=== PATIENT | male | born 1985 | race African-American/Black ===

== ENCOUNTER 2021-03-15 13:01 | Emergency (ER) | payer MEDICAID, SELFPAY ==
--- NOTE | ~2021-03-15 | XR_ITS ---
EXAMINATION: XR RIBS, LEFT CLINICAL INFORMATION: Rib pain status post football injury COMPARISON: None TECHNIQUE: 3 views of the left ribs were obtained along with single view chest.. FINDINGS: Lungs are clear. No consolidation, pneumothorax, or pleural effusion. The cardiomediastinal silhouette and pulmonary vasculature are normal. Osseous structures are unremarkable. Ribs are intact. No fractures are identified. XR/XR ribs LT min 3V w CXR1V IMPRESSION: Unremarkable examination.
[2021-03-15 13:29] VITALS: BP 116/59; PULSE 70; RESP 16; TEMP 36.6; O2SAT 99; BMI 29.1
--- NOTE | 2021-03-15 14:14 | ED.GENADULT ---
HPI - General Adult General Chief complaint: General Medical Stated complaint: DIFF BREATHING INJ FOOTBALL Time Seen by Provider: 03/15/21 14:10 Source: patient Mode of arrival: ambulatory Limitations: no limitations History of Present Illness HPI narrative: 35 y/o male presenting with left anterior rib pain and SOB after he was tackled in flag football earlier today. He states when he was hit he had the wind knocked out of him but he was able to get up and finish the little bit that was left. When he got home he started to have worsening left anterior rib pain and pain with deep inspiration. He denies ACKERMAN and SOB. Pain worse with movement and deep breathing. No bruising to his chest wall. MD complaint: left rib pain Onset (ago): hour(s) Location: chest Radiation: non-radiation Severity: severe Severity scale (1-10): 8 Quality: aching Pain Consistency: constant Relieving factors: none Exacerbating factors: movement Associated symptoms: denies other symptoms Treatments prior to arrival: none Related Data Previous Rx's Medication Instructions Recorded ibuprofen 800 mg PO Q8H PRN #20 tab 03/15/21 lidocaine [Lidoderm] 1 patch TOPICAL DAILY #15 ea 03/15/21 Allergies Allergy/AdvReac Type Severity Reaction Status Date / Time No Known Allergies Allergy Unverified 07/18/20 15:29 Review of Systems Review of Systems: Constitutional: No Fever, No Chills Cardiovascular: + Chest Pain, No SOB Respiratory: No Cough, No Sputum, No Wheezing, No dyspnea Gastrointestinal: No Nausea, No Vomiting, No abdominal Pain, Musculoskeletal: No joint pain, No Myalgias Skin: No Skin Lesions Neuro: No Weakness, No Numbness, No Dizziness, No Headache Heme/Lymph: No Bruising PMFSH Past Medical History Attestation statement: The following information was validated with the patient. Medical History No known health problems Social History Social History Advance Directives: No Advance Directives Information Provided: No Physical Exam Vital Signs: Vital Signs: Last Vital Signs Temp 97.9 F 03/15/21 13:29 Pulse 70 03/15/21 13:29 Resp 16 03/15/21 13:29 BP 116/59 L 03/15/21 13:29 Pulse Ox 99 03/15/21 13:29 Body Mass Index 29.1 Appearance: Alert. Oriented X3. No acute distress. HEENT: normal inspection CVS: Normal heart rate and rhythm. Pulses normal. Respiratory: No respiratory distress. Lower anterior ribs with mild tenderness, no deformity, no ecchymosis. Lung sounds CTAB. Skin: Skin warm and dry. Normal skin color. Normal skin turgor. No rashes. Extremities: atraumaitc, no edema Neuro: Oriented X 3. No motor deficit. No sensory deficit. Course Course Course Narrative: 35 y/o male presenting with anterior chest wall pain s/p football injury today. XR pending to assess for PTX and rib fracture. Reevaluation(s) Reevaluation #1: CXR negative. Pain improved after toradol. Stable for d/c for treatment of rib contusions. Discharge Plan Discharge Clinical Impression: Bruised ribs Qualifiers: Encounter type: initial encounter Laterality: left Qualified Code(s): S20.212A - Contusion of left front wall of thorax, initial encounter Patient Disposition: Home, Self-Care Instructions: Rib Contusion (ED) Additional Instructions: Your x-ray today did not show any broken ribs. Recommend rest and ice several times per day. Take the prescribed medication as needed for pain - pain with food. Use the topical pain patches as needed. Follow up with your doctor as needed. Prescriptions: New ibuprofen 800 mg tablet 800 mg PO Q8H PRN (Reason: pain) Qty: 20 RF: 0 lidocaine [Lidoderm] 5 % adhesive patch,medicated 1 patch topical DAILY Qty: 15 RF: 0
[2021-03-15] MEDS: Ketorolac Tromethamine 30 MG/ML VIAL IM (14:28)
[2021-03-15 15:11] VITALS: RESP 18
== END 2021-03-15 15:12 | disposition home or self-care (01) ==
PROVIDERS: Emergency Provider Emergency Medicine Emergency Medical Services
DX: S20.212A Contusion of left front wall of thorax, initial encounter (principal); W50.0XXA Accidental hit or strike by another person, initial encounter; Y93.62 Activity, american flag or touch football; Y92.321 Football field as the place of occurrence of the external cause; Y99.8 Other external cause status
CPT/HCPCS: 71101; 96372; 99283; 99284; J1885

== ENCOUNTER 2021-10-06 15:06 | Emergency (ER) | payer MEDICAID, SELFPAY ==
--- NOTE | ~2021-10-06 | XR_ITS ---
EXAMINATION: XR SOFT TISSUE NECK CLINICAL INDICATION: Difficulty swallowing. COMPARISON: None TECHNIQUE: 2 views of the soft tissue neck were obtained. FINDINGS: Soft tissue films of the neck demonstrate a normal larynx, pharynx and upper trachea. No soft tissue swelling or opaque foreign body is demonstrated. XR/XR soft tissue neck IMPRESSION: Unremarkable examination.
[2021-10-06 15:17] VITALS: BP 146/79; PULSE 62; RESP 18; TEMP 36.1; O2SAT 100; BMI 28.3
--- NOTE | 2021-10-06 17:42 | ED_ITS ---
HPI - General Adult General Chief complaint: General Medical Stated complaint: Feels something in throat Time Seen by Provider: 10/06/21 17:42 History of Present Illness HPI narrative: Patient complains of intermittent difficulty swallowing where he feels like his esophagus is blocked but then he drinks a lot a water and food is able to pass he does not recall any incident of swallowing anything that got caught this is been going on for 2 weeks, there is no drooling, he is able to swallow no difficulty breathing Related Data Previous Rx's Medication Instructions Recorded ibuprofen 800 mg tablet 800 mg PO Q8H PRN #20 tab 03/15/21 lidocaine 5 % topical patch 1 patch TOPICAL DAILY #15 ea 03/15/21 (Lidoderm) Allergies Allergy/AdvReac Type Severity Reaction Status Date / Time No Known Allergies Allergy Verified 10/06/21 18:39 Review of Systems Review of Systems: Positive for difficulty swallowing Negatives are no fever no chills no headache no neck pain no shortness of breath no drooling no chest pain no abdominal pain no nausea vomiting or diarrhea no skin rash Yes all other systems are reviewed and are negative [facility] Past Medical History Source: nursing notes reviewed Medical History No known health problems Social History Social History Advance Directives: No Advance Directives Information Provided: No Physical Exam Vital Signs: Vital Signs: Last Vital Signs Temp 97 F 10/06/21 15:17 Pulse 62 10/06/21 15:17 Resp 18 10/06/21 15:17 BP 146/79 H 10/06/21 15:17 Pulse Ox 100 10/06/21 15:17 BMI result Body Mass Index 28.3 General appearance no acute distress comfortable, speaking normally no drooling The pharynx is clear with no swelling redness exudate, there is no drooling there is no trismus, pharynx appeared normal The neck was supple with no mass palpated Patient was tested drinking water and was easily able to swallow water Chest clear to auscultation bilateral Heart no murmur Abdomen soft nontender Extremities full range of motion x4 Course Course Course Narrative: Soft tissue neck x-ray was normal, patient was not in any acute distress and was able to swallow but did have a perception of difficulty swallowing I texted Dr. pulido GI doctor and spoke with her and she agreed to follow this patient in her office if symptoms persisted so patient was given her office contact information and was discharged and advised to return should symptoms worsen Discharge Plan Discharge Clinical Impression: Obstruction of esophagus Patient Disposition: Home, Self-Care Additional Instructions: I contacted the gastroenterology doctor Dr. Pulido and she said if symptoms are not better she will follow you next week so call the office for an appointment next week and make sure you tell them that this was discussed from the emergency room with Dr. Pulido who agreed to see you as a patient If symptoms worsen in any way return to the ER any time Prescriptions: No Action ibuprofen 800 mg tablet 800 mg PO Q8H PRN (Reason: pain) Qty: 20 RF: 0 lidocaine [Lidoderm] 5 % adhesive patch,medicated 1 patch topical DAILY Qty: 15 RF: 0 Referrals: Ector Pulido MD [Physician] - 1 week (Partial esophageal obstruction, able to swallow food but difficulty swallowing and washes food down with water to swallow it for 2 weeks) Interventions: ED Discharge Assessment Last Done: 10/06/21 19:05 Discharge Date/Time: 10/06/21 19:06
== END 2021-10-06 19:06 | disposition home or self-care (01) ==
PROVIDERS: Emergency Provider Emergency Medicine Emergency Medical Services
DX: K22.2 Esophageal obstruction (principal)
CPT/HCPCS: 70360; 99283

== ENCOUNTER → 2021-11-18 11:06 | Outpatient (BNVA) | payer MEDICAID, SELFPAY | PROVIDERS: Visit Provider Internal Medicine Gastroenterology | DX: R19.8 Other specified symptoms and signs involving the digestive system and abdomen (principal); F12.90 Cannabis use, unspecified, uncomplicated | CPT/HCPCS: 99202 ==

== ENCOUNTER 2021-12-04 10:26 | Day surgery (SDC) | payer MEDICAID, SELFPAY ==
[2021-11-28 13:59] VITALS: BMI 28.3
--- NOTE | 2021-12-03 10:15 | HO.ANESPROP2 ---
Documented by User: Cassy Burrows NP 12/03/21 10:15 HPI - Anesthesia Eval Consult details Narrative: 36yo M for Upper Endoscopy PMFSH Active Problems Active Problems: All Active Problems (Updated 11/18/21 @ 11:42 by Mynor Crowell MD) Globus pharyngeus (Acute) Past Medical History Medical History No known health problems Social History Social History Patient Tobacco Use Status: Never used Tobacco Use of substances other than those prescribed or required for medical reasons: Yes Substance Use Frequency: Daily Are you DNR?: No Advance Directives: No Advance Directives Information Provided: Yes Meds Allergies Allergy/AdvReac Type Severity Reaction Status Date / Time No Known Allergies Allergy Verified 12/04/21 10:48 Exam Exam Date and Time: December 03, 2021 1015 Height,Weight and Vital Signs: Height 5 ft 5 in Weight 77.27 kg Assessment and Plan Assessment Anesthesia Assessment: Chart Reviewed Documented by User: Jacquelin Beaulieu MD 12/04/21 11:47 PMFSH Past Medical History Medical History No known health problems Functional capacity: independent ambulation Family History Family history of problems with anesthesia: No Surgical History History of Problems with Anesthesia: No Social History Social History Patient Tobacco Use Status: Never used Tobacco Use of substances other than those prescribed or required for medical reasons: Yes Substance Use Frequency: Daily Are you DNR?: No Advance Directives: No Advance Directives Information Provided: Yes Meds Allergies Allergy/AdvReac Type Severity Reaction Status Date / Time No Known Allergies Allergy Verified 12/04/21 10:48 Exam Airway Mallampati Class: I TM Dist: >3cm Neck ROM: Full Heart: RRR Lungs: CTA Assessment and Plan Final Anesthetic Review Family History of Problems with Anesthesia: No History of Problems with Anesthesia: No ASA Class: II Final Preanesthetic Review: No Changes in Pt Med Stat, Meds/Allgs Chart Reviewed, Consent Obtained/Reviewed and Anes Risks/Benef Reviewed Patient Risk: Low (H) Procedure Risk: Low Anesthetic Plan Anesthetic Plan: MAC: Disposition: Standard PACU
[2021-12-04 10:50] VITALS: BP 132/79; PULSE 53; RESP 16; TEMP 37; O2SAT 98
[2021-12-04] MEDS: Lactated Ringers 1,000 ML 100 ML IVCONT (11:00)
--- NOTE | 2021-12-04 11:17 | MHC.SHP ---
Pre-Procedural Eval Section A Date of Service: 12/04/21 The patient is an INPATIENT: No The History & Physical has been completed within 30 days and I have reviewed it.: Yes Section B Chief Complaint: Dysphagia Details of Present Illness: globus sensation Allergies: Allergies Allergy/AdvReac Type Severity Reaction Status Date / Time No Known Allergies Allergy Verified 12/04/21 10:48 Plan Diagnosis/Plan: Unchanged I have reviewed the history and physical and performed a pertinent physical examination on my patient. No changes have occurred unless specified.
--- NOTE | 2021-12-04 12:00 | PM.OP ---
Brief Operative Note Date of Service: 12/04/21 Pre-op diagnosis: globus sensation Post-op diagnosis: same Procedure: see op note Surgeon: Mynor Crowell MD Anesthesia: MAC Was an Director Of Instruction used for this Procedure?: No Estimated blood loss (mL): 0 Condition: stable Disposition: PACU
--- NOTE | 2021-12-04 12:00 | W.PM.OPN ---
Operative Note Operative Note Date of Service: 12/04/21 Narrative: Operative Information Procedure Description: EGD FLEXIBLE TRANSORAL UPPER GASTROINTESTINAL ENDOSCOPY UPPER ENDOSCOPY Consent: Indications for the procedure and potential complications of bleeding, perforation, reaction to medications and missed diagnosis were discussed with the patient and informed consent was obtained. Instrument: Olympus GIF H 190 J mid size upper endoscope Monitoring: Vital signs and clinical assessment, continuous EKG monitoring, Pulse oximetry, Carbon Dioxide monitoring and blood pressure monitoring were done throughout the procedure. Procedure: The patient was placed in the left lateral decubitis position and pre-procedure medications were administered and a bite block was placed. The endoscope was inserted into the mouth and advanced under direct vision to the third part of duodenum. A careful inspection was made as the upper endoscope was withdrawn including a retroflexed examination of the proximal stomach; Findings and interventions are described below. Findings: Larynx:normal Esophagus: GE junction at 40 cm, diaphragm hiatus at 40 cm, streaky erosive esophagitis and schatzki rign noted, bx taken from distal and proximal esophagus in separate jars as well as from GRJ. Stomach: Patchy gastric erythema. Biopsies were obtained. Grade 2 flap valve on retroflexed examination of the cardia. Duodenum: Normal bulb and descending duodenum, Intervention: Biopsies as noted above Impression/Findings: erosive esophagitis gastritis PLAN: trial of PPI if H pylori pos then treat reflux precautions
[2021-12-04 12:30] VITALS: BP 102/57; PULSE 58; RESP 18; TEMP 36.3; O2SAT 96
--- NOTE | 2021-12-04 12:41 | PC.NURSE ---
mouth guard removed. md oh by bedside speaking to patient.
[2021-12-04 12:45] VITALS: BP 116/58; PULSE 55; RESP 16; TEMP 36.2; O2SAT 99
[2021-12-04 12:56] VITALS: BP 125/69; PULSE 42; RESP 16; O2SAT 99
--- NOTE | 2021-12-04 12:58 | HO.POSTANES ---
Post Anesthesia Evaluation Post Anesthesia Evaluation Vital Signs: Vital Signs Temp Pulse Resp BP Pulse Ox 12/04/21 12:56 42 L 16 125/69 99 12/04/21 12:45 97.1 F 55 16 116/58 L 99 12/04/21 12:30 97.3 F 58 18 102/57 L 96 12/04/21 10:50 98.6 F 53 16 132/79 98 Anesthesia: Monitored Mental Status: Awake Pain Control: Satisfactory Nausea/Vomiting: None Hydration: Adequate Anesthesia-Related Issues: No Anes. Related Issues
[2021-12-04 13:16] VITALS: BP 129/66; PULSE 46; RESP 16; O2SAT 100
[2021-12-04 13:27] VITALS: BP 124/74; PULSE 46; O2SAT 100
--- NOTE | 2021-12-04 13:27 | PC.NURSE ---
md agarwal reassed patient ok to go home. asymptomatic.
== END 2021-12-04 14:02 | disposition home or self-care (01) ==
PROVIDERS: Visit Provider Internal Medicine Gastroenterology
PROC: 0DJ08ZZ Inspection of Upper Intestinal Tract, Via Natural or Artificial Opening Endoscopic (ICD-10-PCS; CPT 43235; principal; 2021-12-04 12:00)
DX: R13.10 Dysphagia, unspecified (principal); K22.2 Esophageal obstruction; K20.80 Other esophagitis without bleeding; K29.50 Unspecified chronic gastritis without bleeding; K44.9 Diaphragmatic hernia without obstruction or gangrene; F12.90 Cannabis use, unspecified, uncomplicated
CPT/HCPCS: 43239; 88305; 88342

== ENCOUNTER → 2022-01-19 13:33 | Outpatient (BNVA) | payer MEDICAID, SELFPAY | PROVIDERS: Visit Provider Internal Medicine Gastroenterology | DX: Z13.89 Encounter for screening for other disorder (principal) ==

== ENCOUNTER → 2022-05-22 09:11 | Outpatient (BNVA) | payer MEDICAID, SELFPAY | PROVIDERS: Visit Provider Internal Medicine Gastroenterology | DX: K20.80 Other esophagitis without bleeding (principal) | CPT/HCPCS: 99212 ==

== ENCOUNTER 2022-05-22 17:14 | Outpatient (REF) | payer MEDICAID, SELFPAY | END 2022-05-22 17:15 | disposition home or self-care (01) | LOC: HO.LNP 17:14 | PROVIDERS: Visit Provider Internal Medicine Gastroenterology | DX: Z13.89 Encounter for screening for other disorder (principal) ==

== ENCOUNTER → 2022-05-27 08:23 | Outpatient (BNVA) | payer MEDICAID, SELFPAY | PROVIDERS: Visit Provider Internal Medicine Gastroenterology | DX: Z11.0 Encounter for screening for intestinal infectious diseases (principal) | CPT/HCPCS: 83013; 99211 ==

== ENCOUNTER 2022-05-27 16:08 | Outpatient (REF) | payer MEDICAID, SELFPAY ==
[2022-05-28 14:11] LABS: H Pylori Breath Test Negative (Negative)
== END 2022-05-27 16:09 | disposition home or self-care (01) ==
LOC: HO.LNP 16:08
PROVIDERS: Visit Provider Internal Medicine Gastroenterology
DX: K20.90 Esophagitis, unspecified without bleeding (principal); Z11.0 Encounter for screening for intestinal infectious diseases
CPT/HCPCS: 83013

== ENCOUNTER 2023-07-02 06:14 | Emergency (ER) | payer SELFPAY ==
[2023-07-02 06:16] VITALS: BP 132/76; PULSE 72; RESP 18; TEMP 36.8; O2SAT 100; BMI 28.3
[2023-07-02 06:31] LABS: MANUAL DIFF FLAG NO
[2023-07-02 06:33] LABS: Basophils Percent Auto 0.3 % (0-2); Eosinophils Absolute Auto 0.2 X10*3/uL (0.0-0.4); Eosinophils Percent Auto 2.4 % (0-4); Hematocrit 45.3 % (42.0-52.0); Hemoglobin 15.5 g/dl (14.0-18.0); Imm Gran Abs Auto 0.03 X10*3/uL (0.00-0.03); Imm Gran Pct Auto 0.3 % (0.0-0.4); Lymphocytes Percent Auto 20.7 % (20-40); Mean Corpuscular HGB Conc 34.2 g/dl (31.0-36.0); Mean Corpuscular Hemoglobin 30.5 pg (27.0-33.0); Mean Corpuscular Volume 89.2 fL (80.0-98.0); Mean Platelet Volume 9.1 fL (9.4-12.4); Monocytes Absolute Auto 0.4 X10*3/uL (0.1-1.2); Monocytes Percent Auto 3.7 % (2-11); Neutrophils Absolute Auto 7.1 x10*3/uL (2.0-8.3); Neutrophils Percent Auto 72.6 % (45-73); Platelet Count 219 X10*3/uL (160-400); Red Blood Count 5.08 X10*6/uL (4.60-5.80); Red Cell Distribution Width 12.1 % (11.0-16.0); White Blood Count 9.8 X10*3/uL (4.8-10.8)
[2023-07-02 06:46] LABS: Alanine Aminotransferase 15 U/L (0-40); Albumin Level 4.2 g/dL (3.5-5.0); Alkaline Phosphatase 53 U/L (39-117); Anion Gap 14 (12-20); Aspartate Amino Transferase 25 U/L (5-37); Bilirubin Total 0.8 mg/dL (0.0-1.0); Blood Urea Nitrogen 10 mg/dL (9-16); Calcium 9.7 mg/dL (8.4-10.2); Carbon Dioxide 22 mmol/L (22-29); Chloride 108 mmol/L (96-108); Creatinine Clr Calc Pharmacy 104.2; Estimated Glomerular Filt Rate > 60; Glucose Random 106 mg/dL (60-115); Potassium 3.7 mmol/L (3.3-5.1); Sodium 140 mmol/L (135-145); Total Protein 7.1 g/dL (6.5-8.0)
--- NOTE | 2023-07-02 07:08 | ED.SKABFB ---
HPI - Skin/Abscess/Foreign Bdy General Chief complaint: Skin/Abscess/Foreign Body Stated complaint: insect bite, swollen/itchy Time Seen by Provider: 07/02/23 07:04 Source: patient Mode of arrival: ambulatory Limitations: no limitations History of Present Illness HPI narrative: This is a 37-year-old male presenting bug bite to right forearm, but happened on Wednesday, he reports he felt something bite him however not sure what bit him. 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 Denies fevers, chills, numbness, tingling, chest pain, shortness of breath, nausea, vomiting. Related Data Previous Rx's Medication Instructions Recorded ibuprofen 800 mg tablet 800 mg PO Q8H PRN pain #20 tabs 03/15/21 amoxicillin 500 mg capsule 1,000 mg PO BID 2 weeks #56 caps 01/02/22 levofloxacin 500 mg tablet 500 mg PO DAILY 2 weeks #14 tabs 01/02/22 pantoprazole 20 mg tablet,delayed 20 mg PO BID 2 weeks #28 tabs 01/02/22 release cephalexin 500 mg tablet 500 mg PO Q6H 10 days #40 tabs 07/02/23 doxycycline hyclate 100 mg capsule 100 mg PO BID 10 days #20 caps 07/02/23 prednisone 20 mg tablet 20 mg PO DAILY 5 days #5 tabs 07/02/23 Allergies Allergy/AdvReac Type Severity Reaction Status Date / Time No Known Allergies Allergy Verified 05/27/22 08:46 Review of Systems Review of Systems: Constitutional : No Weight loss, No Fever, No Chills, No Fatigue, No Malaise ENT/Mouth : No sore throat, No Rhinorrhea Eyes: No Eye Pain, No Swelling, No Redness Cardiovascular : No Chest Pain, No SOB, No Dyspnea on Exertion, No Orthopnea, No Edema, No Palpitations Respiratory : No Cough, No Sputum, No Wheezing Gastrointestinal : No Nausea, No Vomiting, No Diarrhea, No Constipation, No abdominal Pain, No Hematochezia, No Melena Genitourinary : No Dysuria, No Urinary Frequency, No Hematuria, Musculoskeletal : No joint pain, No Myalgias, No Joint Swelling Skin : No Skin Lesions, No rash, + bug bite Neuro : No Weakness, No Numbness, No Dizziness, No Headache Psych : No Anxiety/Panic, No Depression All other systems reviewed and are negative Yes all other systems are reviewed and are negative [facility] Past Medical History Attestation statement: The following information was validated with the patient. Source: old records reviewed and nursing notes reviewed Medical History No known health problems Surgical History History of esophagogastroduodenoscopy (EGD) Social History Social History Patient Tobacco Use Status: Never used Tobacco Physical Exam Vital Signs: Vital Signs: Last Vital Signs Temp 98.2 F 07/02/23 06:16 Pulse 72 07/02/23 06:16 Resp 18 07/02/23 06:16 BP 132/76 07/02/23 06:16 Pulse Ox 100 07/02/23 06:16 O2 Del Method Room Air 07/02/23 06:16 BMI result Body Mass Index 28.3 vss Appearance: Alert.? Oriented X3.? No acute distress.? Head: Normocephalic, atraumatic, no step-offs or deformities Eyes: Pupils equal, round and reactive to light.?? CVS: Normal heart rate and rhythm.? Pulses normal.? Respiratory: No respiratory distress.? Breath sounds normal.? Abdomen: Soft and nontender.? Skin: Skin warm and dry.? Normal skin color.? Normal skin turgor.? + there is a 5 cm x 3 cm swollen, indurated, erythematous and warm region with a central small puncture suspected bite wound to right forearm, ventral aspect. 2+ radial pulses equal bilateral. Normal sensation distally capillary refill less than 2 seconds. Extremities: No lower extremity edema.? No calf ttp. 5/5 strength to bilateral upper and lower extremities Neuro: Oriented X 3.? No motor deficit.? No sensory deficit. CN 2-12 intact Course Reevaluation(s) Reevaluation #1: Educated patient on diagnosis and treatment plan, answered all question, patient verbalizes understanding. At this time patient will be discharged home, advised to return with new or worsening symptoms. Educated on worrisome signs and symptoms and when to return. At this time I feel comfortable discharge home. Time: 07:11 Medical Decision Making Medical Decision Making [facility] Narrative: 37-year-old male presents with dog bite to right forearm, worsening redness, swelling Physical exam significant for there is a 5 cm x 3 cm swollen, indurated, erythematous and warm region with a central small puncture suspected bite wound to right forearm, ventral aspect. 2+ radial pulses equal bilateral. Normal sensation distally capillary refill less than 2 seconds. Concerns for bug bite with overlying erythema, warmth consistent with cellulitis. Unlikely necrotizing infection, threat to Mcdonald, neurovascular compromise. Unlikely erysipelas, osteomyelitis. No signs of septic joint on exam. Based off presentation unlikely tick-borne illness Plan at this time discharge home with doxycycline and Keflex. Differential Diagnosis Differential Diagnoses: The differential diagnosis associated with the presentation includes Concerns for bug bite with overlying erythema, warmth consistent with cellulitis. Unlikely necrotizing infection, threat to Mcdonald, neurovascular compromise. Unlikely erysipelas, osteomyelitis. No signs of septic joint on exam. Based off presentation unlikely tick-borne illness Admission/Observation Consideration of admission/observation: Escalation of care including admission/observation considered No indication Lab Data [facility] Lab Attestation statement: I reviewed the patient's lab results. 07/02/23 06:25 07/02/23 06:25 Labs: Lab Results 07/02/23 07/02/23 Range/Units 06:25 06:25 WBC 9.8 (4.8-10.8) X10*3/uL RBC 5.08 (4.60-5.80) X10*6/uL Hgb 15.5 (14.0-18.0) g/dl Hct 45.3 (42.0-52.0) % MCV 89.2 (80.0-98.0) fL MCH 30.5 (27.0-33.0) pg MCHC 34.2 (31.0-36.0) g/dl RDW 12.1 (11.0-16.0) % Plt Count 219 (160-400) X10*3/uL MPV 9.1 L (9.4-12.4) fL Immature Gran % (Auto) 0.3 (0.0-0.4) % Neut % (Auto) 72.6 (45-73) % Lymph % (Auto) 20.7 (20-40) % [place] % (Auto) 3.7 (2-11) % Eos % (Auto) 2.4 (0-4) % Baso % (Auto) 0.3 (0-2) % Lymph # (Auto) 2.0 (1.2-4.9) X10*3/uL [place] # (Auto) 0.4 (0.1-1.2) X10*3/uL Eos # (Auto) 0.2 (0.0-0.4) X10*3/uL Baso # (Auto) 0.0 (0.0-0.2) X10*3/uL Abs Immat Gran (auto) 0.03 (0.00-0.03) X10*3/uL Absolute Neuts (auto) 7.1 (2.0-8.3) x10*3/uL Absolute Nucleated RBC 0.000 (0.0-0.012) X10*3/uL Nucleated RBC % (auto) 0.0 (0.0-0.2) /100WBC Sodium 140 (135-145) mmol/L Potassium 3.7 (3.3-5.1) mmol/L Chloride 108 (96-108) mmol/L Carbon Dioxide 22 (22-29) mmol/L Anion Gap 14 (12-20) BUN 10 (9-16) mg/dL Creatinine 0.93 (0.5-1.4) mg/dL Estim Creat Clear Calc 104.2 Estimated GFR > 60 Random Glucose 106 (60-115) mg/dL Calcium 9.7 (8.4-10.2) mg/dL Total Bilirubin 0.8 (0.0-1.0) mg/dL AST 25 (5-37) U/L ALT 15 (0-40) U/L Alkaline Phosphatase 53 (39-117) U/L Total Protein 7.1 (6.5-8.0) g/dL Albumin 4.2 (3.5-5.0) g/dL Prescription Management I considered prescription management with: Antibiotic Core Measures AMI core measures followed: Yes Measure exclusions: not indicated Discharge Plan Discharge Clinical Impression: Cellulitis, Bug bite Patient Disposition: Home, Self-Care Instructions: Cellulitis (ED), Warm Compress or Soak (ED) Additional Instructions: Take your medications as prescribed. If you were prescribed antibiotics today, it is important that you take your medication to their entirety, do not skip any doses, do not finish them early. Follow-up with your primary care provider this week. Return to the emergency department with new or worsening symptoms. Such as fevers, chills, chest pain, shortness of breath, nausea, vomiting, dizziness, headache, vision changes, lethargy In case of emergency call 911 Prescriptions: New doxycycline hyclate 100 mg capsule 100 mg PO BID 10 Days Qty: 20 0RF prednisone 20 mg tablet 20 mg PO DAILY 5 Days Qty: 5 0RF cephalexin 500 mg tablet 500 mg PO Q6H 10 Days Qty: 40 0RF No Action levofloxacin 500 mg tablet 500 mg PO DAILY 14 Days Qty: 14 0RF amoxicillin 500 mg capsule 1,000 mg PO BID 14 Days Qty: 56 0RF pantoprazole 20 mg tablet,delayed release (DR/EC) 20 mg PO BID 14 Days Qty: 28 0RF ibuprofen 800 mg tablet 800 mg PO Q8H PRN (Reason: pain) Qty: 20 0RF Referrals: Physician,Unknown J [Primary Care Provider] - 2 days
--- NOTE | 2023-07-02 07:19 | PC.NURSE ---
Patient reports right forearm pain and swelling after being bit by a bug on tue. Patient with small pimple surrounded by redness on right forearm. temp 98.2
== END 2023-07-02 07:21 | disposition home or self-care (01) ==
PROVIDERS: Emergency Provider Emergency Medicine
DX: L03.113 Cellulitis of right upper limb (principal); Z79.899 Other long term (current) drug therapy
CPT/HCPCS: 36415; 80053; 85025; 99282; 99283

== ENCOUNTER 2023-07-30 17:18 | Emergency (ER) | payer OTHER, SELFPAY ==
--- NOTE | ~2023-07-30 | XR_ITS ---
EXAMINATION: XR HAND, RIGHT CLINICAL INFORMATION: Third digit pain, trauma, DIP swelling. COMPARISON: None available. TECHNIQUE: PA, lateral, and oblique views of the right hand. FINDINGS: Subtle osseous fragments adjacent to the radial base of the third proximal phalanx and ulnar base of the distal third phalanx, nonspecific could represent degenerative osteophytes or small avulsion injuries. Joint alignment is anatomic. No significant soft tissue abnormality. No unexpected radiopaque foreign bodies. XR/XR hand RT 2V IMPRESSION: Subtle osseous fragments adjacent to the radial base of the third proximal phalanx and ulnar base of the distal third phalanx, nonspecific could represent degenerative osteophytes or small avulsion injuries. Correlate with point tenderness.
[2023-07-30 17:19] VITALS: BP 132/71; PULSE 63; RESP 16; TEMP 36.7; O2SAT 97; BMI 29.1
--- NOTE | 2023-07-30 17:20 | ED_ITS ---
HPI - Extremity Injury (Upper) General Chief Complaint: Extremity Injury, Upper Stated Complaint: ?R hand middle finger dislocation Time Seen by Provider: 07/30/23 18:00 Source: patient Mode of arrival: ambulatory Limitations: no limitations History of Present Illness HPI narrative: 37 y o male presents for evaluation of R middle finger pain. States that 2 weeks ago he jammed his R middle finger while playing flag football, reports pain following the injury which has since improved except for point tenderness. Also endorses mild swelling to the DIP of the affected finger. Able to use fully use the finger including bending and extending. Denies numbness or tingling. Denies any laceration to the finger, overlying skin changes. Also denies any fevers, chills, headaches, dizziness, chest pain, shortness of breath, weakness, abdominal pain. Related Data Previous Rx's Medication Instructions Recorded ibuprofen 800 mg tablet 800 mg PO Q8H PRN pain #20 tabs 03/15/21 amoxicillin 500 mg capsule 1,000 mg (2 x 500 mg) PO BID 2 01/02/22 weeks #56 caps levofloxacin 500 mg tablet 500 mg PO DAILY 2 weeks #14 tabs 01/02/22 pantoprazole 20 mg tablet,delayed 20 mg PO BID 2 weeks #28 tabs 01/02/22 release cephalexin 500 mg tablet 500 mg PO Q6H 10 days #40 tabs 07/02/23 doxycycline hyclate 100 mg capsule 100 mg PO BID 10 days #20 caps 07/02/23 prednisone 20 mg tablet 20 mg PO DAILY 5 days #5 tabs 07/02/23 Allergies Allergy/AdvReac Type Severity Reaction Status Date / Time No Known Allergies Allergy Verified 05/27/22 08:46 Review of Systems Review of Systems: Constitutional : No Weight loss, No Fever, No Chills, No Fatigue, No Malaise ENT/Mouth : No sore throat, No Rhinorrhea Eyes: No Eye Pain, No Swelling, No Redness Cardiovascular : No Chest Pain, No SOB, No Dyspnea on Exertion, No Orthopnea, No Edema, No Palpitations Respiratory : No Cough, No Sputum, No Wheezing Gastrointestinal : No Nausea, No Vomiting, No Diarrhea, No Constipation, No abdominal Pain, No Hematochezia, No Melena Genitourinary : No Dysuria, No Urinary Frequency, No Hematuria, Musculoskeletal : + joint pain, No Myalgias, + Joint Swelling Skin : No Skin Lesions, No rash Neuro : No Weakness, No Numbness, No Dizziness, No Headache Psych : No Anxiety/Panic, No Depression All other systems reviewed and are negative Yes all other systems are reviewed and are negative [facility] Past Medical History Attestation statement: The following information was validated with the patient. Source: old records reviewed and nursing notes reviewed Medical History No known health problems Surgical History History of esophagogastroduodenoscopy (EGD) Social History Social History Patient Tobacco Use Status: Never used Tobacco Advance Directives: No Advance Directives Information Provided: Yes Physical Exam Vital Signs: Vital Signs: Last Vital Signs Temp 98.1 F 07/30/23 17:19 Pulse 63 07/30/23 17:19 Resp 16 07/30/23 17:19 BP 132/71 07/30/23 17:19 Pulse Ox 97 07/30/23 17:19 O2 Del Method Room Air 07/30/23 17:19 BMI result Body Mass Index 29.1 VSS Appearance: Alert.? Oriented X3.? No acute distress.? Head: Normocephalic, atraumatic, no step-offs or deformities Eyes: Pupils equal, round and reactive to light.? Neck: Normal inspection.? Neck supple.? CVS: Normal heart rate and rhythm.? Pulses normal.? Respiratory: No respiratory distress.? Breath sounds normal.? Skin: Skin warm and dry.? Normal skin color.? Normal skin turgor.? Extremities: No lower extremity edema.? No calf ttp. 5/5 strength to bilateral upper and lower extremities. 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 Full ROM of all fingers including the affected R middle finger at the PIP and DIP joints. Gross sensation in tact, cap refill <2s b/l. 2+ radial and ulnar pulses b/l. Trace edema to the DIP joint of the R 3rd finger. +TTP to the R 3rd finger at the DIP joint. Neuro: Oriented X 3.? No motor deficit.? No sensory deficit. CN 2-12 intact Course Course Course Narrative: This is an RME: Additional HPI, ROS, PE not included below will be deferred to primary provider. Patient is a 37-year-old male presents emergency department for evaluation of concern for dislocation to the distal tip of the right 3rd digit that occured 2 weeks ago. Pain is improving but still present. Swelling to the DIP, plan to obtain XR exclude fracture Reevaluation(s) Reevaluation #1: Xray of the hand resulted demonstrating subtle osseous fragments adjacent to the radial base of the third proximal phalanx and ulnar base of the distal third phalanx which is nonspecific and may represent degenerative osteophytes or small avulsion injuries. This was reviewed with the patient who understands this. Informed patient that we will discharge him with a splint for the finger to wear during the day and provide him with a referral for the hand surgeon for continu ed pain. He verbalized understanding of this and is satisfied with this plan. 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 Full ROM of all fingers including the affected R middle finger at the PIP and DIP joints. Gross sensation in tact, cap refill <2s b/l. 2+ radial and ulnar pulses b/l. Trace edema to the DIP joint of the R 3rd finger. +TTP to the R 3rd finger at the DIP joint. Concern for fracture vs dislocation vs subluxation vs hematoma. No acute threat to limb, neurovascularly in tact. No signs of necrotizing infection, no concern for gangrene. Plan - Imaging Differential Diagnosis Differential Diagnoses: The differential diagnosis associated with the presentation includes Concern for fracture vs dislocation vs subluxation vs hematoma. No acute threat to limb, neurovascularly in tact. No signs of necrotizing infection, no concern for gangrene. Admission/Observation Consideration of admission/observation: Escalation of care including admission/observation considered No indication Independent Interpretation I performed an independent interpretation of an: Plain X-Ray Radiology Impression Discussion of test interpretation with radiology: I have reviewed the radiologist's reading. Discharge Plan Discharge Clinical Impression: Finger injury Patient Disposition: Home, Self-Care Instructions: Finger Sprain (ED) Additional Instructions: Take your medications as prescribed. If you were prescribed antibiotics today, it is important that you take your medication to their entirety, do not skip any doses, do not finish them early. Follow-up with your primary care provider this week. Return to the emergency department with new or worsening symptoms. Such as fevers, chills, chest pain, shortness of breath, nausea, vomiting, dizziness, headache, vision changes, lethargy In case of emergency call 911 Follow-up with hand doctor if needed XR/XR hand RT 2V IMPRESSION: Subtle osseous fragments adjacent to the radial base of the third proximal phalanx and ulnar base of the distal third phalanx, nonspecific could represent degenerative osteophytes or small avulsion injuries. Correlate with point tenderness. Prescriptions: No Action levofloxacin 500 mg tablet 500 mg PO DAILY 14 Days Qty: 14 0RF amoxicillin 500 mg capsule 1,000 mg PO BID 14 Days Qty: 56 0RF pantoprazole 20 mg tablet,delayed release (DR/EC) 20 mg PO BID 14 Days Qty: 28 0RF ibuprofen 800 mg tablet 800 mg PO Q8H PRN (Reason: pain) Qty: 20 0RF doxycycline hyclate 100 mg capsule 100 mg PO BID 10 Days Qty: 20 0RF prednisone 20 mg tablet 20 mg PO DAILY 5 Days Qty: 5 0RF cephalexin 500 mg tablet 500 mg PO Q6H 10 Days Qty: 40 0RF Referrals: Physician,None [Primary Care Provider] - 2 days Stand Alone Forms: Work/School Release
== END 2023-07-30 18:26 | disposition left against medical advice (07) ==
PROVIDERS: Emergency Provider Emergency Medicine
DX: S63.612A Unspecified sprain of right middle finger, initial encounter (principal); M79.641 Pain in right hand; Y33.XXXA Other specified events, undetermined intent, initial encounter; Y93.9 Activity, unspecified; Y92.9 Unspecified place or not applicable; Y99.9 Unspecified external cause status
CPT/HCPCS: 73120; 99281; 99283

== ENCOUNTER 2024-03-10 15:10 | Emergency (ER) | payer SELFPAY ==
--- NOTE | ~2024-03-10 | XR_ITS ---
EXAMINATION: XR LUMBOSACRAL SPINE CLINICAL INFORMATION: Low back pain, frequent lifting at work COMPARISON: None available. TECHNIQUE: Three views of the lumbosacral spine. FINDINGS: The visualized lumbar vertebrae are intact with normal alignment. Intervertebral disc spaces are normal. XR/XR lumbar spine 2-3V IMPRESSION: 1. Normal lumbosacral spine x-ray. 2. No fracture or dislocation of lumbar spine is seen.
--- NOTE | ~2024-03-10 | XR_ITS ---
EXAMINATION: XR FOREARM, LEFT CLINICAL INFORMATION: Distal radial pain after lifting. COMPARISON: None available. TECHNIQUE: AP and lateral views of the left forearm were obtained. FINDINGS: The bones and soft tissues are normal. No fracture. Imaged portions of the elbow and wrist are unremarkable. XR/XR forearm LT 2V IMPRESSION: Normal left forearm.
[2024-03-10 15:31] VITALS: BP 118/73; PULSE 60; RESP 18; TEMP 36.6; O2SAT 98; BMI 26.1
--- NOTE | 2024-03-10 15:33 | ED_ITS ---
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 and lifting heavy objects/furniture He has had low back pain for several months However he has had left forearm pain and indicates the volar aspect for the last 2 days He denies any specific injury His pain is worse with twisting or movement Denies any numbness, tingling Denies any lower extremity weakness No other complaints or concerns at this time Related Data Previous Rx's ?Medication ?Instructions ?Recorded ibuprofen 800 mg tablet 800 mg PO Q8H PRN pain #20 tabs 03/15/21 amoxicillin 500 mg capsule 1,000 mg (2 x 500 mg) PO BID 2 01/02/22 weeks #56 caps levofloxacin 500 mg tablet 500 mg PO DAILY 2 weeks #14 tabs 01/02/22 pantoprazole 20 mg tablet,delayed 20 mg PO BID 2 weeks #28 tabs 01/02/22 release cephalexin 500 mg tablet 500 mg PO Q6H 10 days #40 tabs 07/02/23 doxycycline hyclate 100 mg capsule 100 mg PO BID 10 days #20 caps 07/02/23 prednisone 20 mg tablet 20 mg PO DAILY 5 days #5 tabs 07/02/23 Allergies Allergy/AdvReac Type Severity Reaction Status Date / Time No Known Allergies Allergy Verified 03/10/24 15:35 Review of Systems Constitutional: Constitutional: Denies body ache(s), Denies chills, Denies fever(s) and Denies headache(s) Eyes: Eyes: Denies blurry vision ENT: Denies headache(s) Cardiovascular: Cardiovascular: Denies chest pain and Denies dyspnea Respiratory: Respiratory: Denies cough and Denies dyspnea Gastrointestinal: Gastrointestinal: Denies abdominal pain Musculoskeletal: Musculoskeletal: Denies back pain and Reports muscle weakness Integumentary/Breasts: Skin/Breast: Denies erythema Neurologic: Denies headache(s) [facility] Past Medical History Medical History No known health problems Surgical History History of esophagogastroduodenoscopy (EGD) Social History Social History (System 08/17/23 @ 11:45 by Varsha Galdamez) Patient Tobacco Use Status: Never used Tobacco Smoked in Last 30 Days: No Use of substances other than those prescribed or required for medical reasons: Yes Substance Use Type: Marijuana Substance Use Frequency: Weekly Advance Directives: No Advance Directives Information Provided: No Do you have a plan to hurt others: No Plan Physical Exam ED Vital Signs: Vital Signs - 24 hr 03/10/24 15:31 03/10/24 17:24 Temperature 97.8 F 0 F L Pulse Rate 60 0 L Respiratory Rate 18 0 L Blood Pressure 118/73 0/0 L Pulse Oximetry 98 Oxygen Delivery Method Room Air BMI result Body Mass Index 26.1 Const General: healthy appearing, comfortable, no acute distress, alert and awake Nutritional Appearance: well nourished Orientation/consciousness: patient oriented x3 HENMT Head: Yes normocephalic and Yes atraumatic Eyes Eyelids: Yes eyelids normal Conjunctivae: conjunctivae normal Sclerae: sclerae normal Corneas: corneas normal Pupils: Equal, round and reactive pupils present EOM: EOMs intact bilaterally Neck Neck: Yes full ROM Resp Effort & Inspection: normal respiratory effort, able to speak in complete sentences and not labored Back/Spine/Pelvis Other: Mild tenderness across the lumbar paraspinous region without vertebral tender ness. No step-off deformities. Negative straight leg raise bilaterally. Skin General skin exam: elasticity normal Neuro General: patient oriented x3 Cranial nerves: Yes Equal, round and reactive pupils present and Yes Bilaterally intact EOM present Cognition (Neuro): normal cognition Extrem Other: Moving all extremities well without any obvious deformities. There is no obv ious deformity to the left forearm/wrist. No edema noted. The patient is minimally tender over the dorsal surface of the left distal radius. There is no ventral tenderness. Negative Tinel sign. Negative Ambrosio test Course Course Course Narrative: This is a rapid medical exam performed by Bernice Zuñiga NP: Additional HPI, ROS, PE not included below will be deferred to primary provider. Patient is a 38-year-old right hand dominant male presenting to the ED with complaint of distal left forearm pain after lifting heavy boxes at work on Wednesday. Pain increases with ROM of fingers. Also reporting atraumatic low back pain which improves with stretching. Plan: xray Medical Decision Making Medical Decision Making [facility] Narrative: 38-year-old male presents for evaluation of left forearm and lower back pain. The low back pain is more chronic, he has a reassuring exam but no concern for cauda equina syndrome. X-ray shows no degenerative changes. He has no weakness, no numbness, tingling. No IV drug use or fevers to suggest infectious cause. 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 His left forearm pain is more acute, is on the dorsal surface, not the ventral he has a negative Tinel sign so doubt carpal tunnel syndrome. He likely has a muscle strain. X-ray shows no osseous injury. Patient was provided outpatient PCP resources Differential Diagnosis Differential Diagnoses: The differential diagnosis associated with the presentation includes Radiculopathy Low back pain Disc herniation Chronic back pain Muscle strain Carpal Tunnel syndrome De Quervain tenosynovitis Independent Interpretation I performed an independent interpretation of an: Plain X-Ray (No obvious fracture to left forearm) Interpretation: No obvious compression deformity to the lumbar spine Radiology Impression Discussion of test interpretation with radiology: I have reviewed the radiologist's reading. Radiologist Impression: IMPRESSION: 1. Normal lumbosacral spine x-ray. 2. No fracture or dislocation of lumbar spine is seen. IMPRESSION: Normal left forearm. Discharge Plan Discharge Clinical Impression: Muscle strain of left forearm, Low back pain Patient Disposition: Home, Self-Care Instructions: Back Pain (ED) Additional Instructions: Your x-ray did not show any significant abnormalities. Your left arm pain is likely related to a muscle strain Your low back pain may also be related to a muscle strain versus a disc herniation Use ibuprofen/Tylenol for pain Stretching both areas may help with the pain Follow-up with your primary doctor when able Prescriptions: No Action levofloxacin 500 mg tablet 500 mg PO DAILY 14 Days Qty: 14 0RF amoxicillin 500 mg capsule 1,000 mg PO BID 14 Days Qty: 56 0RF pantoprazole 20 mg tablet,delayed release (DR/EC) 20 mg PO BID 14 Days Qty: 28 0RF ibuprofen 800 mg tablet 800 mg PO Q8H PRN (Reason: pain) Qty: 20 0RF doxycycline hyclate 100 mg capsule 100 mg PO BID 10 Days Qty: 20 0RF prednisone 20 mg tablet 20 mg PO DAILY 5 Days Qty: 5 0RF cephalexin 500 mg tablet 500 mg PO Q6H 10 Days Qty: 40 0RF Interventions: ED Discharge Assessment Last Done: 03/10/24 17:24 Print Language: Greek
--- NOTE | 2024-03-10 16:15 | PC.NURSE ---
Pt self presents with reports of left wrist pain with movement since Wednesday. Pt lifts boxes for a living, pain on movement, denies pain at rest. +csm. Also endorsing lower back pain when sitting or standing too long. Denies back pain at this time. Ambulatory with steady gait. Provider to bedside for primary eval.
[2024-03-10 17:24] VITALS: BP 0/0; PULSE 0; RESP 0; TEMP -17.7; TEMP 0
== END 2024-03-10 17:26 | disposition home or self-care (01) ==
PROVIDERS: Emergency Provider Emergency Medicine
DX: S59.912A Unspecified injury of left forearm, initial encounter (principal); S56.912A Strain of unspecified muscles, fascia and tendons at forearm level, left arm, initial encounter; M54.50 Low back pain, unspecified; M79.632 Pain in left forearm; X50.0XXA Overexertion from strenuous movement or load, initial encounter; Y93.9 Activity, unspecified; Y92.9 Unspecified place or not applicable; Y99.0 Civilian activity done for income or pay
CPT/HCPCS: 72100; 73090; 99283; 99284

== ENCOUNTER 2024-07-02 13:39 | Emergency (ER) | payer SELFPAY ==
--- NOTE | ~2024-07-02 | CT_ITS ---
EXAMINATION: CT CERVICAL SPINE WITHOUT CONTRAST CLINICAL INFORMATION: Bilateral arm pain after football injury. COMPARISON: None available. TECHNIQUE: Multidetector helical imaging of the cervical spine was obtained without intravenous contrast. Multiple axial reformats and coronal/sagittal reconstructions were created the technologist workstation for review. This CT examination was performed using dose optimization techniques as appropriate, variously including the following: *Automated exposure control. *Adjustment of mA and/or kV according to patient size (this includes techniques or standardized protocols for targeted exams where dose is matched to indication/reason for exam; i.e. extremities or head). *Use of iterative reconstruction technique. DLP: 454 mGy-cm FINDINGS: The atlantooccipital and atlantoaxial articulations remain well aligned. Mild reversal of normal cervical lordosis centered at C6-C7. Otherwise, there is anatomic alignment of the vertebral bodies and posterior elements. No evidence of acute fracture or subluxation. The vertebral body heights are maintained. Moderate degenerative disc disease at C6-C7. There is no prevertebral soft tissue swelling. The thyroid gland and remaining cervical soft tissues are within normal limits. The lung apices demonstrate no abnormalities. SPINAL LEVELS: Normal lingular contours from C2-C6. Moderate disc-osteophyte complex formation at C6-C7. Normal annular contour at C7-T1. Moderate bilateral uncovertebral joint arthropathy at C6-C7. Mild degenerative uncovertebral joint arthropathy at C7-T1. Mild facet arthropathy at C2-C3 and from C5-C7. Moderate osseous encroachment on the neural foramina at C6-C7. No additional neural foraminal stenosis. There appears to be mild spinal canal stenosis at C6-C7. No demonstrated additional spinal canal stenosis. CT/CT cervical spine wo IV con IMPRESSION: 1. No evidence of acute fracture or traumatic subluxation of the cervical spine. 2. 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 Most notably on this limited exam without intrathecal contrast, there appears to be mild spinal canal stenosis and moderate osseous encroachment on the neural foramina at C6-C7. Electronically signed by: Jose Duckworth DO 07/02/2024 04:03 PM EDT
[2024-07-02 14:34] VITALS: BP 129/70; PULSE 53; RESP 16; TEMP 36.4; O2SAT 100; BMI 28.9
--- NOTE | 2024-07-02 14:51 | PC.NURSE ---
patient from external triage after sustaining a head injury while playing football yesterday. patient was seen at [facility] and left AMA due to long wait times, states he got a head CT and did not stay long enough for the results, thought he could sleep it off but when he woke up this morning the pain in his arms was worse, describes the pain as burning and tingling pain in bilateral forearms, equal strength noted bilaterally, bilateral strength and movement in BLE, endorsing headache and some upper back pain. patient educated by this RN on the importance on staying for complete workup, provided with blanket for comfort.
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
--- OUTSIDE RECORDS SUMMARY | 2024-07-02 15:18 | XMS_ITS | Continuity of Care Document ---
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
--- OUTSIDE RECORDS SUMMARY | 2024-07-02 15:18 | XMS_ITS | Continuity of Care Document ---
Author Organization [facility] ter Address [address] [place] [id number]- Care Team Providers Care Business Support Professional Name Role Phone Not on Staff, PCP Primary Care Physician Unavail able Encounter [facility] Date(s): 07/01/24 - 07/01/[address] [address]- Encounter Diagnosis Trauma(Final) - 07/01/24 Closed head injury(Final) - 07/01/24 Discharge Disposition: A-D/C Home Attending Physician: Jensen Hernandes MD Admitting Physician: Jensen Hernandes MD Referring Physician: Not on Staff, Referring MD Results Radiology Reports * Exam Date Time Procedure Performing Provider Status 07/01/24 11:22 AM Chest Portable Jessica Polanco (Verified) Notes: (Chest Portable) Reason For Exam: Pain;Other: RESULT: Chest Portable Chest Portable supine at 11:02 AM Reason: Other:; Pain; Clinical Question(s): Other:; Fracture, pneumothorax, pulmonary contusion COMPARISON: None. FINDINGS: LINES AND TUBES: None. LUNGS AND PLEURA: Clear lungs. Normal pulmonary vascularity. No pleural effusion. No pneumothorax. HEART, MEDIASTINUM AND ZAID: Heart is normal in size. Normal mediastinal and hilar contour. BONES AND SOFT TISSUES: No acute abnormality. IMPRESSION: Normal examination. WSN: [id number] Ordering Physician: Temo Falcon Dictated By: Ishan Alston MD Dictated Date/Time: 07/01/24 12:03 p Reviewed By: Ishan Alston MD Signed By: Ishan Alston MD Signed Date/Time: 07/01/24 12:03 pm Transcribed By: MINDY Transcribed Date/Time: 07/01/24 12:02 pm * Exam Date Time Procedure Performing Provider Status 07/01/24 11:[address] Cervical Spine W/O Contrast Ac Herrera (Verified) Notes: (CT Cervical Spine W/O Contrast) Reason For Exam: Neck trauma, dangerous injury mechanism;Other: RESULT: CT Cervical Spine W/O Contrast CT Head/Brain W/O Contrast, CT Cervical Spine W/O Contrast INDICATION: Reason: Other:; Head trauma, mod-severe; Clinical Question(s): Hematoma TECHNIQUE: Noncontrast head CT using axial technique was reconstructed in axial and coronal planes.Noncontrast spiral CT through the cervical spine was formatted in 3 planes. Automatic tube modulation was used for the cervical spine and iterative dose reconstruction was used for both the head and cervical spine to optimize scan parameters and image quality. CTDIvol Body: 16.40 mGy, DLP Body: 446 mGy*cm. CTDIvol Head: 39.80 mGy, DLP Head: 672 mGy*cm. COMPARISON: This examination was performed emergently using a temporary medical record and no priorimaging or medical history was available for review at the time of this interpretation. FINDINGS: Carpet Measurer View Findings, Lines and Tubes: None. BRAIN AND EXTRA-AXIAL SPACES: No parenchymal hemorrhage, midline shift, or mass effect. Presley-white matter differentiation is wellpreserved. No acute infarct. Ventricles, sulci, and basilar cisterns are normal. No white matter lesions. No subarachnoid hemorrhage. No subdural or epidural collection. CALVARIUM, SKULL BASE, AND SOFT TISSUES: No fractures or suspicious bony lesions. The paranasal sinuses and mastoid air cells are clear. Visualized orbits and globes are intact. The extracranial soft tissues are unremarkable. CERVICAL SPINE: No fracture. No acute osseous abnormalities. Normal alignment. No locked or perched facet. Intervertebral disc spaces and vertebral body heightsare preserved. OTHER BONES: No acute abnormality. CERVICAL SOFT TISSUES AND LUNG APICES: Normal soft tissues. Visualized lung apices are clear. Normal thyroid. IMPRESSION: No acute abnormality of the head or cervical spine. I have personally reviewed the images and I agree with this report. WSN: [id number] Ordering Physician: Temo Falcon Dictated By: Ana Austin DO Dictated Date/Time: 07/01/24 11:36 a Reviewed By: Ishan Alston MD Signed By: Ishan Alston MD Signed Date/Time: 07/01/24 11:41 am Transcribed By: CSB Transcribed Date/Time: 07/01/24 11:28 am * Exam Date Time Procedure Performing Provider Status 07/01/24 11:[address] Head/Brain W/O Contrast Florinda Herrera an; Auth (Verified) Notes: (CT Head/Brain W/O Contrast) Reason For Exam: Head trauma, mod-severe;Other: RESULT: CT Head/Brain W/O Contrast CT Head/Brain W/O Contrast, CT Cervical Spine W/O Contrast INDICATION: Reason: Other:; Head trauma, mod-severe; Clinical Question(s): Hematoma TECHNIQUE: Noncontrast head CT using axial technique was reconstructed in axial and coronal planes.Noncontrast spiral CT through the cervical spine was formatted in 3 planes. Automatic tube modulation was used for the cervical spine and iterative dose reconstruction was used for both the head and cervical spine to optimize scan parameters and image quality. CTDIvol Body: 16.40 mGy, DLP Body: 446 mGy*cm. CTDIvol Head: 39.80 mGy, DLP Head: 672 mGy*cm. COMPARISON: This examination was performed emergently using a temporary medical record and no priorimaging or medical history was available for review at the time of this interpretation. FINDINGS: Carpet Measurer View Findings, Lines and Tubes: None. BRAIN AND EXTRA-AXIAL SPACES: No parenchymal hemorrhage, midline shift, or mass effect. Presley-white matter differentiation is wellpreserved. No acute infarct. Ventricles, sulci, and basilar cisterns are normal. No white matter lesions. No subarachnoid hemorrhage. No subdural or epidural collection. CALVARIUM, SKULL BASE, AND SOFT TISSUES: No fractures or suspicious bony lesions. The paranasal sinuses and mastoid air cells are clear. Visualized orbits and globes are intact. The extracranial soft tissues are unremarkable. CERVICAL SPINE: No fracture. No acute osseous abnormalities. Normal alignment. No locked or perched facet. Intervertebral disc spaces and vertebral body heightsare preserved. OTHER BONES: No acute abnormality. CERVICAL SOFT TISSUES AND LUNG APICES: Normal soft tissues. Visualized lung apices are clear. Normal thyroid. IMPRESSION: No acute abnormality of the head or cervical spine. I have personally reviewed the images and I agree with this report. WSN: [id number] Ordering Physician: Temo Falcon Dictated By: Ana Austin DO Dictated Date/Time: 07/01/24 11:36 a Reviewed By: Ishan Alston MD Signed By: Ishan Alston MD Signed Date/Time: 07/01/24 11:41 am Transcribed By: MINDY Transcribed Date/Time: 07/01/24 11:28 am * Exam Date Time Procedure Performing Provider Status 07/01/24 11:[address] Chest W/ Contrast Hever Herrera; Au th (Verified) Notes: (CT Chest W/ Contrast) Reason For Exam: Chest trauma, blunt;Other: RESULT: CT Chest W/ Contrast CT Chest W/ Contrast INDICATION: Reason: Other:; Chest trauma, blunt; Clinical Question(s): Other:; Aortic hilar injury TECHNIQUE: Helical CT scan of the chest with IV contrast, formatted in 3 planes. 75 cc of [id number] was administered intravenously. Weight-based protocol was performed using automatic exposure control. COMPARISON: None. FINDINGS: Carpet Measurer view findings, lines and tubes: None. Trachea and airways: Patent without evidence of tracheal or endobronchial lesion. Lungs and pleura: In the right lower lobe, there is a 5 mm nodule in series 205 image 70 as well asa 4 mm subpleural nodule in image 73. In the left lower lobe, there are 3 subpleural nodules ranging in size between 3 and 4 mm in series 205 images 63 through 72. Lungs are otherwise well-aerated and clear with normal vascularity. No effusion or pneumothorax. Mediastinum and zaid: No mass or hematoma. No mediastinal or hilar lymphadenopathy. No esophageal abnormality. Normal thyroid. Heart: Heart is normal in size. No pericardial effusion. Aorta: No aortic aneurysm. Pulmonary arteries: Normal caliber. No evidence of pulmonary embolism on this study performed without angiographic technique. Chest wall soft tissues: Left-sided gynecomastia. Diaphragm: Intact. Upper abdomen: No significant abnormality. Bones: No acute abnormality. IMPRESSION: No acute abnormality. Several small noncalcified nodules in both lower lobes, the largest measuring 5 mm. Based on Fleischner Society criteria, no imaging follow-up is indicated. Left-sided gynecomastia. WSN: [id number] Ordering Physician: Temo Falcon Dictated By: Ishan Alston MD Dictated Date/Time: 07/01/24 11:31 a Reviewed By: Ishan Alston MD Signed By: Ishan Alston MD Signed Date/Time: 07/01/24 11:31 am Transcribed By: MINDY Transcribed Date/Time: 07/01/24 11:23 am Vital Signs Most recent to oldest [Reference Range]: 1 Oxygen Saturation [94-100 %] 97 % (07/01/24 11:32 AM) Pulse Rate [55-90 bpm] 58 bpm (07/01/24 11:32 AM) Blood Pressure [90-138/55-84 mm Hg] 117/ 71mm Hg (07/01/24 11:32 AM) Mode of Delivery (Oxygen) Room air (07/01/24 11:32 AM) History and physical note * Gregory MCKENZIE, Yogesh: MODIFY Gregory MCKENZIE, Yogesh: MODIFY, SIGN Gregory MCKENZIE Yogesh: SIGN, MODIFY, SIGN, VERIFY, MODIFY, SIGN Event Display: History and Physical Hospital Authored Date: [id number] Patient: BERNARDINO WILL Age: 38 years Sex: Male : 1985 Associated Diagnoses: None Author: Temo Falcon MD Trauma Activation Category: Category 2. Trauma History 38yoM cat2 trauma s/p foot ball accident with head to head contact. No LOC. No helmet. However, he did have paresthesias in the right lower extremity initially and bilateral upper extremity. Baselinesensory deficits on the left. Upon arrival, primary survey was completed and is as follows: airway patent, breath sounds present equal bilaterally, BP 124/76, pupils 3mm and reactive, GCS 15 (E4 V5 M6). Secondary survey was completed and is documented below. [place] collar was placed for c-spine precaution. Following CXR, the patient was taken to CT for further workup. Past Medical History Prior injury to left lower extremity as a child leading to baseline sensory deficits Medications None Allergies None Social History Cannabinoids Past Medical History Allergies No active allergies have been recorded. Social History Social History No qualifying data available. . Physical Examination Vital Signs: T 97.7, BP 124/76, HR 69, RR 18, SpO2 99% on RA General: Appropriately interactive with examination Head: normocephalic, atraumatic, no hematomas, no abrasions, no wounds, no deformities Face: no ecchymosis, no abrasions, no wounds Eyes: pupils are 3mm, equal, round, and reactive; extraocular movement intact Ears: no hemotympanum, no blood in external auditory canal, no abrasions, no randall's sign Nose: no epistaxis, no deformity Mandible: no deformity, no malocclusion Neck: cervical-collar in place, no hematoma, no ecchymosis, no wounds, trachea midline Chest: symmetric, no deformity, sternum, chest wall, and clavicles are nontender to palpation, no crepitus appreciated Heart: regular rate and rhythm Lungs: clear to auscultation bilaterally Abdomen: soft, nondistended, nontender, no wounds, no ecchymosis, no hematoma Pelvis: stable, nontender Back: no ecchymosis, no abrasions, no hematoma, no wounds Cervical spine: no midline deformities or stepoffs, + tenderness, cervical- collar in place Thoracic spine: no midline deformities or stepoffs, + tenderness Lumbar spine: no midline deformities or stepoffs, no tenderness Extremities: no long bone deformities, full active range of motion. Left lower extremity (medial aspect) notable for healed superficial injury Neurologic: GCS15; 5/5 strength and sensation to light touch intact in the bilateral upper and right lower extremity. Paresthesias bilateral upper extremities. Patient has baseline diminished sensation in the left lower extremity -- he says is unchanged from his normal baseline since childhood. Vascular: palpable dorsalis pedis and radial pulses bilaterally FAST exam was deferred Results Review Today's results : Results 07/01/2024 12:26 EDT Barbiturate Screen, Urine NONE DETECTED Cannabinoid Screen, Urine POSITIVE Cocaine Metabolite Screen, Urine NONE DETECTED Benzodiazepine Screen, Urine NONE DETECTED Amphetamine Screen, Urine NONE DETECTED Opiate Screen, Urine NONE DETECTED 07/01/2024 11:06 EDT WBC 6.7 k/mm3 RBC 4.89 m/mm3 Hgb 15.1 Gm/dL Hct 43.4 % MCV 88.8 femtoliters MCH 30.9 pg MCHC 34.8 g/dL Platelet Count 213 k/mm3 RDW-SD 40.0 femtoliters MPV 9.3 femtoliters L Nucleated RBC (Automated) 0.0 #/100 WBC'S Abs. NRBC 0.0 k/mm3 Abs. Neut 4.8 k/mm3 Abs. Lymph 1.6 k/mm3 Abs. [place] 0.2 k/mm3 L Abs. Eo 0.2 k/mm3 Abs. Baso 0.0 k/mm3 Neut % 71.1 % Lymph % 23.4 % [place] % 2.7 % L Eos % 2.2 % Baso % 0.3 % Imm Gran 0.3 % Abs. Imm Gran 0.0 k/mm3 INR 1.0 Protime (PT) 11.1 seconds APTT 24.2 seconds Sodium 141 mmol/L Potassium 3.9 mmol/L Chloride 107 mmol/L Bicarbonate Level 20 mmol/L L Anion Gap 14 Glucose Level 85 mg/dL BUN 5 mg/dL L (Modified) Creatinine-Blood 1.02 mg/dL Estimated GFR Creatinine 57 ML/MIN/1.73 M2 Calcium 9.2 mg/dL Amylase 63 units/L Lactate 2.0 mmol/L Ethanol, Serum or Plasma NONE DETECTED mg/dL 07/01/2024 11:03 EDT Blood Type A Positive Antibody Screen Negative RESULT: Chest Portable Chest Portable supine at 11:02 AM Reason: Other:; Pain; Clinical Question(s): Other:; Fracture, pneumothorax, pulmonary contusion COMPARISON: None. FINDINGS: LINES AND TUBES: None. LUNGS AND PLEURA: Clear lungs. Normal pulmonary vascularity. No pleural effusion. No pneumothorax. HEART, MEDIASTINUM AND ZAID: Heart is normal in size. Normal mediastinal and hilar contour. BONES AND SOFT TISSUES: No acute abnormality. IMPRESSION: Normal examination. WSN: [id number] Ordering Physician: Temo Falcon Signature Line Dictated By: Ishan Alston MD Dictated Date/Time: 07/01/24 12:03 p Reviewed By: Ishan Alston MD Signed By: Ishan Alston MD Signed Date/Time: 07/01/24 12:03 pm Transcribed By: MINDY Transcribed Date/Time: 07/01/24 12:02 pm RESULT: CT Head/Brain W/O Contrast CT Head/Brain W/O Contrast, CT Cervical Spine W/O Contrast INDICATION: Reason: Other:; Head trauma, mod-severe; Clinical Question(s): Hematoma TECHNIQUE: Noncontrast head CT using axial technique was reconstructed in axial and coronal planes.Noncontrast spiral CT through the cervical spine was formatted in 3 planes. Automatic tube modulation was used for the cervical spine and iterative dose reconstruction was used for both the head and cervical spine to optimize scan parameters and image quality. CTDIvol Body: 16.40 mGy, DLP Body: 446 mGy*cm. CTDIvol Head: 39.80 mGy, DLP Head: 672 mGy*cm. COMPARISON: This examination was performed emergently using a temporary medical record and no priorimaging or medical history was available for review at the time of this interpretation. FINDINGS: Carpet Measurer View Findings, Lines and Tubes: None. BRAIN AND EXTRA-AXIAL SPACES: No parenchymal hemorrhage, midline shift, or mass effect. Presley-white matter differentiation is wellpreserved. No acute infarct. Ventricles, sulci, and basilar cisterns are normal. No white matter lesions. No subarachnoid hemorrhage. No subdural or epidural collection. CALVARIUM, SKULL BASE, AND SOFT TISSUES: No fractures or suspicious bony lesions. The paranasal sinuses and mastoid air cells are clear. Visualized orbits and globes are intact. The extracranial soft tissues are unremarkable. CERVICAL SPINE: No fracture. No acute osseous abnormalities. Normal alignment. No locked or perched facet. Intervertebral disc spaces and vertebral body heightsare preserved. OTHER BONES: No acute abnormality. CERVICAL SOFT TISSUES AND LUNG APICES: Normal soft tissues. Visualized lung apices are clear. Normal thyroid. IMPRESSION: No acute abnormality of the head or cervical spine. I have personally reviewed the images and I agree with this report. WSN: [id number] Ordering Physician: Temo Falcon Signature Line Dictated By: Ana Austin DO Dictated Date/Time: 07/01/24 11:36 a Reviewed By: Ishan Alston MD Signed By: Ishan Alston MD Signed Date/Time: 07/01/24 11:41 am Transcribed By: MINDY Transcribed Date/Time: 07/01/24 11:28 am RESULT: CT Chest W/ Contrast CT Chest W/ Contrast INDICATION: Reason: Other:; Chest trauma, blunt; Clinical Question(s): Other:; Aortic hilar injury TECHNIQUE: Helical CT scan of the chest with IV contrast, formatted in 3 planes. 75 cc of [id number] was administered intravenously. Weight-based protocol was performed using automatic exposure control. COMPARISON: None. FINDINGS: Carpet Measurer view findings, lines and tubes: None. Trachea and airways: Patent without evidence of tracheal or endobronchial lesion. Lungs and pleura: In the right lower lobe, there is a 5 mm nodule in series 205 image 70 as well asa 4 mm subpleural nodule in image 73. In the left lower lobe, there are 3 subpleural nodules ranging in size between 3 and 4 mm in series 205 images 63 through 72. Lungs are otherwise well-aerated and clear with normal vascularity. No effusion or pneumothorax. Mediastinum and zaid: No mass or hematoma. No mediastinal or hilar lymphadenopathy. No esophageal abnormality. Normal thyroid. Heart: Heart is normal in size. No pericardial effusion. Aorta: No aortic aneurysm. Pulmonary arteries: Normal caliber. No evidence of pulmonary embolism on this study performed without angiographic technique. Chest wall soft tissues: Left-sided gynecomastia. Diaphragm: Intact. Upper abdomen: No significant abnormality. Bones: No acute abnormality. IMPRESSION: No acute abnormality. Several small noncalcified nodules in both lower lobes, the largest measuring 5 mm. Based on Fleischner Society criteria, no imaging follow-up is indicated. Left-sided gynecomastia. WSN: [id number] Ordering Physician: Temo Falcon Signature Line Dictated By: Ishan Alston MD Dictated Date/Time: 07/01/24 11:31 a Reviewed By: Ishan Alston MD Signed By: Ishan Alston MD Signed Date/Time: 07/01/24 11:31 am Transcribed By: MINDY Transcribed Date/Time: 07/01/24 11:23 am Consultation Information Neurosurgery paged [phone] bedside 1427 Impression and Plan 38yoM cat2 trauma s/p foot ball accident with head to head contact. No LOC. No helmet. However, he did have paresthesias in the right lower extremity initially and bilateral upper extremity. Baselinesensory deficits on the left. Based on clinical history, CT of the head and C-spine were obtained. There were no obvious bony injuries. However, the patient's clinical history and presenting symptoms and persistence of bilateral upper extremity paresthesias are concerning for central cord syndrome. Therefore, neurosurgery has recommended MRI. Unfortunately, the patient felt that further admission was not indicated. He was ambulating around the room and even room used c-collar prior to my presentation. I discussed my clinical concerns with him and he said that he was not made for hospitals. Additionally, I reviewed the risks which include further neurologic damage, paralysis, and complications up to and including . He understood the risks of being discharged without comprehensive workup. Prior to subsequent reevaluations, the patient eloped. Neurosurgery was alerted of this status as well. Injuries Clinical concerns for central cord syndrome Consultants Neurosurgery Plan Initial plan was for further monitoring, MRI of the C-spine, and further neurosurgical evaluation. However, the patient eloped. He was counseled extensively on the risks of paralysis and other complications up to . Discussed with Dr. [place] [phone] with any questions or concerns. * Gregory MCKENZIE, Yogesh: PERFORM Event Display: History and Physical Hospital Authored Date: [id number] I have seen and evaluated this patient on the above documented date. I have discussed the case and its management with the resident team and APPs as documented in the progress note. Seen as a Cat 2 Trauma activation. -38 M -Sports accident resulting in: -Bilateral upper extremity paresthesias. -Examination findings are concerning for central cord syndrome. No motor deficits. Patient planned for MRI, later noted that the patient had eloped from the ED. RA Consult note * Black Watkins: PERFORM, MODIFY Event Display: Consultation Note Authored Date: [id number] Patient: ??BERNARDINO WILL ? Age:??38 Years?Sex:??Male?:??1985?? Provider Clinical Summary paged [phone] bedside 1427 History of Present Illness Bernardino is an otherwise healthy 38-year-old male who was playing flag football today??and had a head-on collision. ??He reports to me he had an acute onset of bilateral lower extremity weakness which has since resolved.?? He is also reporting numbness and burning from the elbows on the dorsal portions of the forearms??terminating on the dorsal hands. ?? At the time of my examination, he has removed his collar??and is up walking around in the emergency department examination room A4.?? He is on his phone.?? He denies??any motor weakness or sensorychanges aside from??the numbness and tingling on the dorsal forearms into the dorsal hands.?? He denies neck pain, thoracic back pain, lower back pain, motor weakness in the legs, sensory changes in the legs, urine retention.?? He is asking to be discharged. Review of Systems All ROS negative except what is mentioned in HPI Above Physical Exam Vitals & Measurements HR:??58??(Peripheral)?? BP:??117/71?? SpO2:??97%? Patient is awake, alert, and oriented to person, place, time, and event Pupils are briskly reactive, EOMs are intact, visual acuity and green are intact to gross confrontation Facial movements are symmetric, speech is fluent and appropriate, hearing is intact, tongue protrudes midline, shoulder shrug is 5/5 Bilateral upper extremity strength and sensation are intact. ??Deep tendon reflexes are 2+. Bilateral lower extremity strength and sensation are intact. ??Deep tendon reflexes are 2+. no hoffmans or clonus Breathing is nonlabored and there is no lower extremity edema Assessment/Plan Central cord syndrome ?? -There is a small central osteophyte at C6-7 which I??reviewed with Bernardino in the examination room??using his CT scan from this morning.?? He likely has a small cord contusion??causing central cord syndrome. ??While not immediately operative,??we do recommend he stay for the MRI cervical spine??andfollow-up with us in 1 month so we can discuss elective ACDF.?? Thoracic and lumbar spine MRIs are not needed.?? I did my best to convince him to stay for the scan??explaining that his symptoms may get worse over the next few hours??however he is quite eager to??leave.?? No role for steroid treatment right now. ??Will follow-up with results of the MRI cervical spine. OK for q4h neuro checks and??chemical dvt ppx. ?? d/w Rhonda ?? Problem List/Past Medical History Ongoing No qualifying data Procedure/Surgical History No qualifying data available. Home Medications No qualifying data available. Allergies No active allergies Family History No family history recorded. * Ivory Ellis DO: PERFORM Event Display: Consultation Note Authored Date: - images seen and case discussed with??Joey - clinical picture is consistent with Central Cord Syndrome - with improvement of symptoms enough that he has no significant deficit, no surgery would be offered at this time, but we recommend MRI cervical spine for better evaluation of the spinal cord. - we recommend follow up in the office in a few weeks for re-evaluation. Patient Care team information Care Team Personnel Name: Not on Staff, PCP Position: S Physician (General Medicine) Member Role: PCP
--- OUTSIDE RECORDS SUMMARY | 2024-07-02 15:18 | XMS_ITS | Continuity of Care Document ---
Author Organization [facility] Address [address] [place] [id number]- Care Team Providers Care Interventionist Name Role Phone Not on Staff, PCP Primary Care Physician Unavail able [facility]counter [facility] Date[facility]): 01[facility]20 - 01/18/20 [facility] [address] [place] [id number] [facility] Attending Physician: Siomara Torres Admitting Physician: Siomara Torres Referring Physician: Siomara Torres
[2024-07-02] MEDS: Cyclobenzaprine HCl 10 MG TABLET PO (15:47)
[2024-07-02] MEDS: predniSONE 10 MG TABLET 50 MG PO (15:47)
[2024-07-02 16:33] VITALS: BP 154/85; PULSE 47; RESP 16; TEMP 36.6; O2SAT 100
== END 2024-07-02 16:37 | disposition home or self-care (01) ==
PROVIDERS: Emergency Provider Emergency Medicine
DX: S19.9XXA Unspecified injury of neck, initial encounter (principal); M79.601 Pain in right arm; M79.602 Pain in left arm; M54.2 Cervicalgia; Y93.62 Activity, american flag or touch football; Y93.89 Activity, other specified; Y92.321 Football field as the place of occurrence of the external cause; Y99.8 Other external cause status
CPT/HCPCS: 72125; 99283

== ENCOUNTER 2024-11-21 22:27 | Emergency (ER) | payer SELFPAY ==
--- NOTE | 2024-11-21 | ECG_ITS ---
Test Reason : cp Blood Pressure : */* mmHG Vent. Rate : 64 BPM Atrial Rate : 64 BPM P-R Int : 176 ms QRS Dur : 92 ms QT Int : 364 ms P-R-T Axes : 75 -28 58 degrees QTcB Int : 375 ms Normal sinus rhythm Incomplete right bundle branch block Nonspecific T wave abnormality Abnormal ECG No previous ECGs available Referred By: Generic ED Physician Electronically Signed By: MAGALI SCRUGGS MD
--- NOTE | ~2024-11-21 | CT_ITS ---
CLINICAL HISTORY: Right-sided chest pain without fever or cough CT angiography chest with contrast. 3D Postprocessing. Comparison: None Findings: The heart is normal size. The thoracic aorta is normal caliber. No pulmonary artery filling defects. Soft tissue density in the anterior mediastinum likely represents residual thymic tissue. Nonspecific 3 mm subpleural right middle lobe nodule (axial image 40 of series 5), couple 3 mm right lower lobe nodules (axial images 37 and 36), and couple 3 mm subpleural left lower lobe nodules (axial images 36 and 40) are present. The upper abdomen is unremarkable. The bones are intact. IMPRESSION: 1. No pulmonary emboli. No evidence of pneumonia. 2. Several nonspecific 3 mm lung nodules. According to Fleischner society guidelines, if patient is at high risk for neoplasm, follow-up CT chest in 12 months is optional. This document has been electronically signed by: David Anderson on 11/22/2024 05:44:39
--- NOTE | ~2024-11-21 | XR_ITS ---
CLINICAL HISTORY: chest pain 2 view chest x-ray Comparison: None Findings: Patchy right lower lobe airspace density. Normal size heart. No acute fracture. IMPRESSION: Right lower lobe pneumonia suggested. Follow-up recommended. This document has been electronically signed by: Gregory Nguyễn MD on 11/21/2024 23:13:56
[2024-11-21 22:48] VITALS: BP 128/75; PULSE 69; RESP 18; TEMP 37; O2SAT 98; BMI 28.3
[2024-11-21 23:20] LABS: Basophils Percent Auto 0.2 % (0-2); Eosinophils Absolute Auto 0.2 X10*3/uL (0.0-0.4); Eosinophils Percent Auto 1.4 % (0-4); Hematocrit 44.2 % (42.0-52.0); Hemoglobin 15.9 g/dl (14.0-18.0); Imm Gran Abs Auto 0.04 X10*3/uL (0.00-0.03); Imm Gran Pct Auto 0.3 % (0.0-0.4); Lymphocytes Absolute Auto 1.5 X10*3/uL (1.2-4.9); Lymphocytes Percent Auto 11.6 % (20-40); MANUAL DIFF FLAG NO; Mean Corpuscular Hemoglobin 31.1 pg (27.0-33.0); Mean Corpuscular Volume 86.5 fL (80.0-98.0); Mean Platelet Volume 8.6 fL (9.4-12.4); Monocytes Absolute Auto 0.6 X10*3/uL (0.1-1.2); Monocytes Percent Auto 4.2 % (2-11); Neutrophils Absolute Auto 10.9 x10*3/uL (2.0-8.3); Neutrophils Percent Auto 82.3 % (45-73); Platelet Count 238 X10*3/uL (160-400); Red Blood Count 5.11 X10*6/uL (4.60-5.80); Red Cell Distribution Width 11.9 % (11.0-16.0); White Blood Count 13.3 X10*3/uL (4.8-10.8)
[2024-11-21 23:33] LABS: Alanine Aminotransferase 24 U/L (0-40); Albumin Level 4.2 g/dL (3.5-5.0); Alkaline Phosphatase 56 U/L (39-117); Anion Gap 13 (12-20); Aspartate Amino Transferase 35 U/L (5-37); Bilirubin Total 0.7 mg/dL (0.0-1.0); Blood Urea Nitrogen 13 mg/dL (9-16); Calcium 8.8 mg/dL (8.4-10.2); Carbon Dioxide 21 mmol/L (22-29); Chloride 108 mmol/L (96-108); Creatinine Clr Calc Pharmacy 115.8; Estimated Glomerular Filt Rate > 60; Glucose Random 101 mg/dL (60-115); Potassium 3.5 mmol/L (3.3-5.1); Sodium 138 mmol/L (135-145); Total Protein 7.7 g/dL (6.5-8.0)
[2024-11-21 23:43] LABS: Troponin-I High Sensitivity < 2.7 ng/L (<3.5-35.0)
--- NOTE | 2024-11-22 03:00 | PC.NURSE ---
Per registration pt left without being seen. Attempted to call pt x2, voicemail box not set up at this time. Per registration, pt stated just shoot me a text prior to leaving department.
--- NOTE | 2024-11-22 03:08 | PC.NURSE ---
Pt saw missed calls from this web content writer and came back to department. to inocente shortly.
--- NOTE | 2024-11-22 03:09 | ED.CHESTPAIN ---
HPI - Chest Pain General Chief Complaint: Chest Pain Stated Complaint: chest pain Time Seen by Provider: 11/22/24 03:09 History of Present Illness ED Provider: Betty TUCKER narrative: The patient is an ordinarily healthy and athletic 39-year-old. 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 He had gone to sleep at around noon and then woken up around 430 or 17:00 in anticipation of his shift supervisor film processing. When he woke up he felt fine. He gradually developed some right-sided chest pain that was worse with leaning forward or taking a deep breath or lifting. He went to work at 18:00 but found that he was having too much pain to continue working and so he came to the emergency department. No fever, sweats, chills. No cough or sputum. 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 He does not have any sense of abdominal pain. No nausea or vomiting. Related Data Previous Rx's ?Medication ?Instructions ?Recorded ibuprofen 800 mg tablet 800 mg PO Q8H PRN pain #20 tabs 03/15/21 amoxicillin 500 mg capsule 1,000 mg (2 x 500 mg) PO BID 2 01/02/22 weeks #56 caps levofloxacin 500 mg tablet 500 mg PO DAILY 2 weeks #14 tabs 01/02/22 pantoprazole 20 mg tablet,delayed 20 mg PO BID 2 weeks #28 tabs 01/02/22 release cephalexin 500 mg tablet 500 mg PO Q6H 10 days #40 tabs 07/02/23 doxycycline hyclate 100 mg capsule 100 mg PO BID 10 days #20 caps 07/02/23 prednisone 20 mg tablet 20 mg PO DAILY 5 days #5 tabs 07/02/23 oxycodone 5 mg tablet 5 mg PO Q8H PRN severe pain (scale 07/02/24 score 7-10) #9 tabs prednisone 50 mg tablet 50 mg PO DAILY 7 days #7 tabs 07/02/24 ibuprofen 600 mg tablet 600 mg PO Q6H PRN pain #20 tabs 11/22/24 Allergies Allergy/AdvReac Type Severity Reaction Status Date / Time No Known Allergies Allergy Verified 11/21/24 22:50 Review of Systems Review of Systems: Yes all other systems are reviewed and are negative PMFSH Past Medical History Medical History No known health problems Surgical History History of esophagogastroduodenoscopy (EGD) Social History Social History (System 08/17/23 @ 11:45 by Varsha Galdamez) Patient Tobacco Use Status: Never used Tobacco Substance Use Type: Marijuana Physical Exam Vital Signs: Vital Signs: Last Vital Signs Temp 98.2 F 11/22/24 06:38 Pulse 54 11/22/24 06:38 Resp 18 11/22/24 06:38 BP 127/58 L 11/22/24 06:38 Pulse Ox 98 11/22/24 06:38 O2 Del Method Room Air 11/22/24 06:38 BMI result Body Mass Index 28.3 Const: Other: The patient has the appearance of a very healthy and athletic, muscular 39-year-old. He looks as though he is ordinarily in good health but he looks somewhat uncomfortable with movements today. HEENT: Other: Face is symmetrical. Mucous membranes moist. Eyes: General: appearance normal, both eyes and all related structures Neck: Other: Moving his neck easily. No JVD. No adenopathy. Chest: Other: Possibly some reproducible right-sided chest wall tenderness but this is equivocal. No crepitus or subcutaneous emphysema. Resp: Effort & Inspection: normal respiratory effort Auscultation: clear to auscultation bilaterally Cardio: Rate: regular rate Rhythm: regular rhythm Heart sounds: S1 normal heart sound present and S2 normal heart sound present GI: Other: Abdomen is soft and nontender. There was no right upper quadrant tenderness. No Toth's sign. Skin: Other: Skin is dry and unremarkable Neuro: Other: The patient is awake and alert with a pleasant demeanor and a normal mental status. Cranial nerves 2-12 are intact. He moves his extremities normally and appropriately. Extrem: Other: No peripheral edema. The patient has a large patch of abnormal skin on the left mid lower leg medially. This appears quite chronic. No erythema. Medications Administered Discontinued Medications Generic Name Dose Route Start Last Admin Trade Name Freq PRN Reason Stop Dose Admin Sodium Chloride 1,000 mls @ 999 mls/hr 11/22/24 04:45 11/22/24 06:13 Ns IV 11/22/24 05:45 Infused .Q1H1M GENNA Infusion Acetaminophen 1,000 mg in 100 mls @ 400 mls/hr 11/22/24 04:38 11/22/24 06:15 Ofirmev IV 11/22/24 04:52 Infused ONCE ONE Infusion Iohexol 65 ml 11/22/24 04:41 11/22/24 04:42 Iohexol 350 Mg/Ml 100 Ml Infus..Btl IV 11/22/24 04:42 65 ml ONCE ONE Administration Ketorolac Tromethamine 10 mg 11/22/24 04:38 11/22/24 05:04 Ketorolac Tromethamine 15 Mg/Ml Vial IVPUSH 11/22/24 04:39 10 mg ONCE ONE Administration Medical Decision Making Medical Decision Making [facility] Narrative: The patient is an ordinarily healthy 39-year-old who presents with fairly abrupt onset of right-sided pleuritic pain that is also somewhat positional. His vital signs are unremarkable. He had a chest x-ray that was read as showing a right lower lobe infiltrate but he does not have any symptoms to suggest he should have a pneumonia. No fever, no cough. Ultimately I did a CT pulmonary angiogram. This showed no pulmonary emboli. It also showed no alternative explanation for the patient's pain. There was no finding of pneumonia seen on CT scan. There was no pulmonary embolism or other acute pathology to account for the patient's symptoms. He has no tenderness in the gallbladder. Overall the patient looks quite well aside from when he moves at which point he looks uncomfortable. Perhaps this is a form of pleurisy. He will be discharged with instructions to use ibuprofen and acetaminophen as needed. He should return if worse. He is working on getting health insurance and a primary care doctor. Lab Data 11/21/24 23:07 11/21/24 23:07 Labs: Lab Results 11/21/24 11/22/24 Range/Units 23:07 03:33 WBC 13.3 H (4.8-10.8) X10*3/uL RBC 5.11 (4.60-5.80) X10*6/uL Hgb 15.9 (14.0-18.0) g/dl Hct 44.2 (42.0-52.0) % MCV 86.5 (80.0-98.0) fL MCH 31.1 (27.0-33.0) pg MCHC 36.0 (31.0-36.0) g/dl RDW 11.9 (11.0-16.0) % Plt Count 238 (160-400) X10*3/uL MPV 8.6 L (9.4-12.4) fL Immature Gran % (Auto) 0.3 (0.0-0.4) % Neut % (Auto) 82.3 H (45-73) % Lymph % (Auto) 11.6 L (20-40) % Hardeman % (Auto) 4.2 (2-11) % Eos % (Auto) 1.4 (0-4) % Baso % (Auto) 0.2 (0-2) % Lymph # (Auto) 1.5 (1.2-4.9) X10*3/uL Hardeman # (Auto) 0.6 (0.1-1.2) X10*3/uL Eos # (Auto) 0.2 (0.0-0.4) X10*3/uL Baso # (Auto) 0.0 (0.0-0.2) X10*3/uL Abs Immat Gran (auto) 0.04 H (0.00-0.03) X10*3/uL Absolute Neuts (auto) 10.9 H (2.0-8.3) x10*3/uL Absolute Nucleated RBC 0.000 (0.0-0.012) X10*3/uL Nucleated RBC % (auto) 0.0 (0.0-0.2) /100WBC D-Dimer High Sensitivty 159 NG/ML Sodium 138 (135-145) mmol/L Potassium 3.5 (3.3-5.1) mmol/L Chloride 108 (96-108) mmol/L Carbon Dioxide 21 L (22-29) mmol/L Anion Gap 13 (12-20) BUN 13 (9-16) mg/dL Creatinine 0.82 (0.5-1.4) mg/dL Estim Creat Clear Calc 115.8 Estimated GFR > 60 Random Glucose 101 (60-115) mg/dL Calcium 8.8 D (8.4-10.2) mg/dL Total Bilirubin 0.7 (0.0-1.0) mg/dL AST 35 (5-37) U/L ALT 24 (0-40) U/L Alkaline Phosphatase 56 (39-117) U/L Troponin I High Sens < 2.7 (<3.5-35.0) ng/L C-Reactive Protein 0.30 (< or = 0.50) mg/dL Total Protein 7.7 (6.5-8.0) g/dL Albumin 4.2 (3.5-5.0) g/dL Discharge Plan Discharge Clinical Impression: Pleuritic chest pain, Right-sided chest pain Patient Disposition: Home, Self-Care Instructions: Pleurisy (ED) Additional Instructions: You seem to have significant pain in the right side of your chest that is worse with bending forward or taking a deep breath. You have not had any associated fever, sweats, or chills or any associated coughing or other symptoms of illness. Your testing in the emergency department does not show any dangerous process to account for your pain. It is possible your pain might be muscular pain. Alternatively you might have a condition called pleurisy although it is not clear why you might have developed a pleurisy. At this point I believe the treatment you require is treatment of the pain with the hope that your symptoms will improve over the next several days. Please take the prescribed ibuprofen every 6 hours as needed for pain. You may also take 2 extra-strength acetaminophen at a time, up to 3 times per day. I would plan on resting and taking it easy for the next couple of days. Please continue your efforts to get health insurance and a regular doctor. If at any point you are significantly worse please return to the emergency department. Prescriptions: New ibuprofen 600 mg tablet 600 mg PO Q6H PRN (Reason: pain) Qty: 20 0RF No Action levofloxacin 500 mg tablet 500 mg PO DAILY 14 Days Qty: 14 0RF amoxicillin 500 mg capsule 1,000 mg PO BID 14 Days Qty: 56 0RF pantoprazole 20 mg tablet,delayed release (DR/EC) 20 mg PO BID 14 Days Qty: 28 0RF ibuprofen 800 mg tablet 800 mg PO Q8H PRN (Reason: pain) Qty: 20 0RF doxycycline hyclate 100 mg capsule 100 mg PO BID 10 Days Qty: 20 0RF prednisone 20 mg tablet 20 mg PO DAILY 5 Days Qty: 5 0RF cephalexin 500 mg tablet 500 mg PO Q6H 10 Days Qty: 40 0RF prednisone 50 mg tablet 50 mg PO DAILY 7 Days Qty: 7 0RF oxycodone 5 mg tablet 5 mg PO Q8H PRN (Reason: severe pain (scale score 7-10)) Qty: 9 0RF Rx Instructions: Partial Fill upon patient request. Stand Alone Forms: Work/School Release Interventions: LWBS Worksheet Last Done: 11/22/24 03:04 Discharge Date/Time: 11/22/24 06:52 Print Language: Pashto
[2024-11-22 03:48] LABS: D Dimer High Sensitivity 159 NG/ML
--- NOTE | 2024-11-22 04:19 | PC.NURSE ---
Iv placed, to awaiting ct scan.
[2024-11-22] MEDS: iohexoL 350 MG/ML 100 ML INFUS..BTL 65 ML IV (04:42)
[2024-11-22 04:46] VITALS: BP 137/64; PULSE 60; RESP 16; TEMP 36.9; O2SAT 99
[2024-11-22] MEDS: Ketorolac Tromethamine 15 MG/ML VIAL 10 MG IVPUSH (05:04)
[2024-11-22] MEDS: 0.9 % Sodium Chloride 1,000 ML 999 ML IV (05:05)
[2024-11-22] MEDS: Acetaminophen 1,000 MG/100 ML PIGGYBACK 400 MG IV (05:10)
[2024-11-22 06:38] VITALS: BP 127/58; PULSE 54; RESP 18; TEMP 36.8; O2SAT 98
== END 2024-11-22 06:52 | disposition home or self-care (01) ==
PROVIDERS: Emergency Medicine; Emergency Provider Emergency Medicine
DX: R07.89 Other chest pain (principal); R07.81 Pleurodynia; I45.10 Unspecified right bundle-branch block; R94.31 Abnormal electrocardiogram [ECG] [EKG]; Z79.899 Other long term (current) drug therapy
CPT/HCPCS: 36415; 71046; 71275; 80053; 84484; 85025; 85379; 86140; 93005; 96361; 96374; 96375; 99284; 99285; J0131; J1885; Q9967

== ENCOUNTER → 2024-11-21 22:40 | Outpatient (BNV) | payer SELFPAY | PROVIDERS: Emergency Provider Emergency Medicine; Visit Provider Internal Medicine Cardiovascular Disease | DX: R07.9 Chest pain, unspecified (principal) | CPT/HCPCS: 93010 ==

== ENCOUNTER → 2024-11-21 22:55 | Outpatient (BNV) | payer SELFPAY | PROVIDERS: Visit Provider Radiology Vascular & Interventional Radiology | DX: R07.9 Chest pain, unspecified (principal) | CPT/HCPCS: 71046 ==

== ENCOUNTER → 2024-11-22 03:58 | Outpatient (BNV) | payer SELFPAY | PROVIDERS: Emergency Provider Emergency Medicine; Visit Provider Radiology Vascular & Interventional Radiology | DX: R91.1 Solitary pulmonary nodule (principal) | CPT/HCPCS: 71275 ==